=== PATIENT | male | born 1950 | race Caucasian/White ===

== ENCOUNTER 2021-12-28 11:04 | Outpatient (CLI) | payer BC, SELFPAY ==
[2021-12-28 20:55] LABS: Erythrocyte SedimentationRate* 2 mm/hr (2-15)
[2021-12-28 21:04] LABS: Chloride* 104 mmol/L (96-114); Sodium* 139 mmol/L (135-149)
[2021-12-28 21:05] LABS: Potassium* 4.4 mmol/L (3.6-5.1)
[2021-12-28 21:07] LABS: Creatinine* 0.9 mg/dL (0.5-1.5); Estimated Glomerular Filt Rate 91.31
[2021-12-28 21:08] LABS: Blood Urea Nitrogen* 24 mg/dL (7-30); Calcium* 9.2 mg/dL (8.4-10.6); Carbon Dioxide* 28 mmol/L (20-32); Glucose* 92 mg/dL (60-115)
[2021-12-28 21:27] LABS: C Reactive Protein* < 0.5 mg/dL (0.5-1.0)
[2021-12-28 21:38] LABS: PSA Diagnostic* 5.93 ng/mL (0.10-4.00)
[2021-12-28 21:56] LABS: Vitamin B12* 923 pg/mL (243-894)
== END 2021-12-28 11:05 | disposition home or self-care (01) ==
PROVIDERS: PCP Family Medicine; Visit Provider Family Medicine
DX: Z00.00 Encounter for general adult medical examination without abnormal findings (principal); R97.20 Elevated prostate specific antigen [PSA]; M25.519 Pain in unspecified shoulder; Z13.21 Encounter for screening for nutritional disorder; Z13.29 Encounter for screening for other suspected endocrine disorder; Z13.1 Encounter for screening for diabetes mellitus
CPT/HCPCS: 80048; 82607; 84153; 84443; 85651; 86140